=== PATIENT | female | born 1955 | race Caucasian/White ===

== ENCOUNTER 2017-10-15 07:30 | Inpatient (IN) ==
--- NOTE | 2017-10-14 14:30 | History and Physical ---
CHIEF COMPLAINT Right knee pain. HPI This is a 62-year-old lady who has advanced arthritis involving her right knee. She is having moderate to severe pain with any type of weightbearing activity. Pain is described as burning, sharp and throbbing. It is constant. It does radiate down the leg into her foot. She has tried heat, ice, ibuprofen , home exercises, crutches and prescription medication. Her symptoms are gradually worsening. The pain is debilitating at times. She has weakness, numbness, swelling, nighttime pain that keeps her from sleeping, weakness with walking and sensation of the knee wanting to give way. 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 She uses crutches to ambulate secondary to pain and instability. She is being admitted for an elective right total knee replacement. ALLERGIES Allergy to codeine although tolerates hydrocodone quite well. Allergy to gabapentin - causes confusion. Lyrica. Adhesive tape causes blistering and alcohol has caused blistering. MEDICATIONS Her list of medications is updated in the EMR. PAST MEDICAL HISTORY The remainder of her medical history is unchanged from Dr. Gallegos's dictation dated 08/17/2017. A copy of that is in the chart. REVIEW OF SYSTEMS There was no fever, chills, skin infections, rashes or seizures. She does report some numbness in the right lower extremity from previous nerve injury. PHYSICAL EXAMINATION 62-year-old lady who is alert and cooperative, in no acute distress. She is ambulatory with the use of a crutch. Her gait is antalgic favoring the right. Mood and affect are normal. The knee is stable to ligamentous exam. No effusion is present. No warmth or redness is noted. There is 1+ effusion. She has a valgus deformity that is partially correctable. She also has a slight flexion contracture to the knee. She is tender along the medial and lateral joint lines. Range of motion of the hip is well maintained. Neurovascularly intact to the lower extremity. ASSESSMENT Primary osteo/osteoarthritis of the right knee. PLAN Due to the severity of her symptoms, the x-ray findings, and failure of nonsurgical treatment, Dr. Gallegos has recommended right total knee arthroplasty. The risks, benefits, alternative treatment and possible complications of surgery have all been reviewed. Questions have been answered to her satisfaction. She has elected to proceed with a right total knee replacement on 10/15/2017. LACEY
[~2017-10-15 07:30] MED LIST: ACETAMINOPHEN 500 MG TABLET PO ONE; DEXAMETHASONE 4 MG/ML INJECTION IVP ONE; FAMOTIDINE PB 20 MG/50 ML BAG IV ONE; LIDOCAINE 1% (10mg/ml) 2mL INJ PF SDV ID ONE; MELOXICAM 15 MG TABLET PO ONE; METOCLOPRAMIDE 10mg/2ml INJECTION IVP ONE; ONDANSETRON 4 MG/2 ML INJECTION IVP ONE
[2017-10-15] MEDS ORDERED: EPINEPHrine PF 0.25 MG, BUPIVACAINE 0.25% PF 30 ML, MORPHINE SULFATE 15 MG, KETOROLAC I... OPSITE ONE (08:00)
[2017-10-15] MEDS ORDERED: MIDAZOLAM 2mg/2ml INJECTION ONE (08:26)
[2017-10-15] MEDS ORDERED: FentaNYL 100 MCG/2 ML INJECTION ONE (08:26)
[2017-10-15] MEDS ORDERED: PROPOFOL 500 MG/50 ML VIAL ONE ×2 (08:27→10:36)
[2017-10-15 08:29] VITALS: BMI 41.2
[2017-10-15] MEDS: LR 1,000 ML IV SCH ×2 (08:50→10:30)
[2017-10-15] MEDS: NOZIN NASAL SWAB NAS SCH ×5 (08:56→21:43)
[2017-10-15] MEDS ORDERED: VANCOMYCIN 1,000 MG INJECTION ONE (09:11)
--- NOTE | 2017-10-15 09:29 | Anesthesia Preoperative Report ---
Anesthesia Preoperative Record - Date and Time Date: 10/15/17 Preoperative Diagnosis: RT TKA M17.11 NPO Since Date: 10/14/17 NPO Since Time: 18:00 Allergies/Adverse Reactions: Allergies Allergy/AdvReac Type Severity Reaction Status Date / Time codeine Allergy Unknown DIFFICULTY Verified 10/15/17 08:40 BREATHING gabapentin Allergy Unknown CONFUSION Verified 10/15/17 08:40 pregabalin AdvReac Intermediate Swelling Verified 10/15/17 08:40 adhesive tape AdvReac Unknown Blistering Verified 10/15/17 08:40 alcohol AdvReac Unknown Blisters Verified 10/15/17 08:40 - Vital Signs Vital Signs: Temperature 98.2 F 10/15/17 08:28 Pulse Rate 75 10/15/17 08:56 Respiratory Rate 14 10/15/17 08:28 Blood Pressure 181/99 H 10/15/17 08:28 Pulse Oximetry 94 10/15/17 08:28 Height and Weight: Height 1.65 m Weight 112.4 kg Body Mass Index 41.2 - Medications Inpatient Medications: Current Medications Cefazolin Sodium (Kefzol) 2 g IVP PREOP ONE Stop: 10/15/17 09:31 Lactated Ringer's (Lactated Ringers) 1,000 mls @ 50 mls/hr IV .Q20H [facility] Last Admin: 10/15/17 08:50 Dose: 50 mls/hr Isopropyl Alcohol (Nozin Nasal Swab) 1 each [place] Q1M LIZ Stop: 10/15/17 12:18 Last Admin: 10/15/17 09:01 Dose: 1 each Sodium Chloride (Iv Flush) 10 - 80 ml IV PRN PRN PRN Reason: Flushing Tranexamic Acid (Cyklokapron) 1,000 mg TOP INTRAOP ONE Stop: 10/15/17 12:12 Home Medications: Home Medications Medication Instructions Recorded Confirmed Type Nitroglycerin 0.4 mg PO Q5MIN3 PRN #0 03/22/13 10/09/17 History Omeprazole 20 mg PO PRN PRN #0 tab 03/20/15 10/15/17 History Lidocaine 5% Ointment [Xylocaine 1 applicatio TOP BID PRN #0 06/03/16 10/09/17 History 5%] Albuterol Sulfate [Proventil Hfa 2 puff INH Q4H PRN 07/20/17 10/15/17 History 90mcg] Fluticasone Nasal [place] [Flonase] 1 spray EA NOSTRIL DAILY PRN 07/20/17 History Hydrocodone/APAP 10325 [[place] 1 tab PO Q4H PRN 07/20/17 10/15/17 History 10/325] Aspirin *EC* [Ecotrin] 325 mg PO DAILY PRN 10/09/17 10/15/17 History Cyclobenzaprine [Flexeril] 1 tab PO TID 10/09/17 10/15/17 History Metoprolol Succinate (XL) [Toprol 50 mg PO DAILY 10/09/17 10/15/17 History Xl] Morphine Sulfate *SR* [Ms Contin] 15 mg PO BID 10/09/17 10/15/17 History Diclofenac [Voltaren] 1 applicatio TOP BID PRN 10/13/17 10/15/17 History Is Patient on Beta Zach?: Yes Beta Zach Last Dose Date/Time: 10/15/17 @ 0700 - Medical History Respiratory: Reports: Asthma, Pneumonia (RECURRENT), Sleep Apnea (pressumptive) Cardiovascular: Reports: Hypertension, High Cholesterol, Other (chest pain 2016; irregular heart beat, stress test negative for ischemia) Gastrointestional: Reports: Gastroesophageal Reflux Disease (sometimes with certain meds), Morbid Obesity Neuro/Musculoskeletal: Reports: HX.MS.OSAR (fibromyalgia; gout), Back Problems ( Chronic pain-[facility]), Cerebrovascular Accident (TIA's x 2. Last episode 10 years ago.), Muscle Weakness (right peroneal injury from previous right leg surgery, with foot drop), Other (TUMORS TO TENDONS; Raynaud' s syndrome, neuropathy to all extremeties. ) Renal/Endocrine: Reports: Other (history of kidney stones) Other History: Reports: Anesthesia Reactions (awakens quicky, sometimes too soon ), Other (history of DVT) - Surgical History Cardiac Surgeries/Treatments: Reports: Cardiac Catheterization GI Surgery/Treatments: Reports: Colonoscopy, EGD Musculoskeletal Surgery/Tx: Reports: Carpal Tunnel Release (Rt; left dequervains ), Joint Surgery, Knee Arthroscopy (Rt-numerous), Orthopedic Surgery (Rt knee arthrotomy x3; Lt ankle tumor exc; Rt elbow ext tendon reattached), Shoulder Arthroscopy (RCR), Total Knee Replacement (Lt TKA x2), Other (clavical surgery, RIGHT) Reproductive Surgery/Treatment: Reports: Dilation and Curettage (x2) Anesthesia Reactions: None Hx Family Anesthesia Reaction: No History of Motion Sickness: No - Social History Smoking Status: Never smoker Hx Chewing Tobacco Use: No Second Hand Exposure: No Substance Use Type: does not use Alcohol Intake Frequency: does not drink - Pertinent Findings Laboratory: CBC and BMP 10/15/17 08:50 BMP 10/15/17 08:50 Sodium 143 Potassium 3.8 Chloride 105 Carbon Dioxide 24 BUN 10.0 Creatinine 0.5 L Glucose 121 H Calcium 9.5 EKG: Sinus Rhythm - Physical Exam Respiratory Exam: Present: lungs clear, bilateral breath sounds equal Cardiovascular Exam: Present: regular rate and rhythm - Airway Assessment Mallampati Score: I TMD: 3 Fingerbreadths Neck Extension: poor (states has some limitation to ROM) Teeth: upper dentures, lower dentures Overall Assessment: may be difficult mask vent - ASA ASA Score: 3 - Plan Anesthesia: General Inhalation Gases, Neuroaxial Regional/Trunk Block: Spinal Peripheral Nerve Block: Saphenous-Right - Discussion Discussion: Discussed risks/options/alternatives of anesthesia and questions answered. Patient consents. Nursing pain assessment noted. Present for Discussion: family member Attestation Statement: Prior to the delivery of any anesthetic medication, I examined the patient, developed the plan, obtained the patient's consent and discussed the risk and benefits of the procedure with the patient/guardian. - Additional Information Seen by Anesthesia: Yes
[2017-10-15] MEDS ORDERED: CEFAZOLIN 1 G INJECTION IVP ONE (09:30)
[2017-10-15] MEDS ORDERED: VANCOMYCIN 1,000 MG INJECTION IAR ONE (09:45)
[2017-10-15] MEDS ORDERED: KETAMINE 500 MG/10 ML INJECTION ONE (09:58)
[2017-10-15] MEDS ORDERED: SALINE FLUSH 10ml SYRINGE ONE (10:02)
[2017-10-15] MEDS ORDERED: ROPIVACAINE 0.5% (5mg/ml) 30ml INJ ONE (10:37)
--- NOTE | 2017-10-15 11:25 | Operative Note ---
- Procedure Preoperative Diagnosis: Right knee primary degenerative joint disease Postoperative Diagnosis: Same as preoperative diagnosis. Surgeon: Thor Gallegos MD [place] Worker: Dontrell Blake Complications: None. Anesthesia: Spinal. Estimated Blood Loss: See Anesthesia Record. Fluids: Please see Anesthesia Record. Description of Procedure: Mrs. Cartwright and her right knee were identified and marked in the preoperative holding area. She was brought back to the operating suite. Spinal anesthetic was administered and she was placed supine on the operating table. The right lower extremity was prepped and draped in my normal sterile fashion. Timeout was performed. The [employer] robotic arm was used during the surgery. She had a varus deformity with a 20 flexion contracture. A standard anterior midline incision followed by medial parapatellar arthrotomy was performed. I utilized about two thirds of her previous curvilinear incision with the most distal aspect curved to far lateral to used to complete previous incision. Anterior fat pad and meniscus were removed. She had significant osteophyte formation especially in the notch and both medially and laterally on the femur and tibia. The patella was everted and a patellar osteotomy was performed leaving 13 mm of bone. Tibial and femoral arrays and checkpoints were placed both within the original incision. The bone was then registered with the [employer] robot. Osteophytes were removed and gaps were captured both 90 and 0 with correction. The [employer] robotic software was used to obtain 18 mm gaps throughout. The [employer] robotic arm was then used to assist with the bone cuts. Posterior osteophytes and remaining meniscus were removed. Trial components were placed. We used a 5 femur and a 4 tibia with a 9 mm spacer and a 32 patella. She tracked well and was well balanced throughout range of motion. The tibia was stamped at the proper rotation. Trial components fit well and bone quality was adequate so we proceeded with press-fit components. Components were press-fit into place. A final spacer was also placed. The knee was ranged one more time to ensure good stability, balance and patellar tracking. 1 g of TXA was allowed to sit in the wound for 5 minutes and then suctioned out. 1 g of vancomycin powder was then placed into the knee joint. The capsulotomy was then closed with #1 Vicryl. I then left my shipping assistant to close the subcutaneous tissue with 2-0 Vicryl. Running 4-0 Monocryl will be used in the subcuticular layer. Dermabond will be used on the skin followed by sterile dressing. After drapes are removed patient will be taken to recovery room under the care of anesthesia.
--- NOTE | 2017-10-15 12:08 | Anesthesia Procedure Note ---
Peripheral Nerve Blockade - Procedure Physician: Geoffrey Gallegos MD Date: 10/15/17 Discussion: Discussed risks/options/alternatives of anesthesia and questions answered. Patient consents. Nursing pain assessment noted. Block Start: 11:54 Block Stop: 12:02 Blocked Employed: Adductor Canal, Single Injection Indication: Post-Operative Pain Approach: Right Side Confirmed Position: Supine Patient: Consent, Risks/Benefits Discussed, Informed, Post Block Act. Discussed IV Sedation: No (post op) Sedation: Awake Initial Vital Signs: Temperature 98.2 F 10/15/17 08:28 Temperature Source Oral 10/15/17 08:28 Pulse Rate 88 10/15/17 08:28 Respiratory Rate 14 10/15/17 08:28 Blood Pressure 181/99 H 10/15/17 08:28 Blood Pressure Mean 126 10/15/17 08:28 Pulse Oximetry 94 10/15/17 08:28 Oxygen Delivery Method 10/15/17 08:28 Post Vital Signs: Temperature 98.2 F 10/15/17 08:28 Pulse Rate 75 10/15/17 08:56 Respiratory Rate 14 10/15/17 08:28 Blood Pressure 181/99 H 10/15/17 08:28 Pulse Oximetry 94 10/15/17 08:28 Ultrasound Used?: Yes - Nerve Simulator Needle Depth: 4 Muscle Response: No Paresthesia/Pain: None - Injectate Ropivacaine (%): 0.5 Ropivacaine (mL): 15 Was Epi 1:200,000 Used?: No Injection: Injection made incrementally with constant monitoring and aspiration every 5 ml
[2017-10-15] MEDS ORDERED: SALINE FLUSH 10ml SYRINGE IV PRN (12:11)
[2017-10-15] MEDS ORDERED: TRANEXAMIC ACID 1,000mg/10ml INJECTION TOP ONE (12:11)
[2017-10-15] MEDS ORDERED: OMEPRAZOLE 20 MG CAPSULE PO PRN (12:21)
[2017-10-15] MEDS ORDERED: FLUTICASONE NASAL SPRAY 50mcg EA NOSTRIL PRN (12:21)
[2017-10-15] MEDS ORDERED: NAPROXEN 220 MG TABLET PO PRN (12:21)
[2017-10-15] MEDS ORDERED: DiphenhydrAMINE 25 MG CAPSULE PO PRN (12:21)
[2017-10-15] MEDS ORDERED: ALBUTEROL 2.5mg/3ml (0.083%) NEB AEROSOL PRN (12:21)
[2017-10-15] MEDS ORDERED: WARFARIN - PHARMACY CONSULT MC ONE (12:21)
[2017-10-15] MEDS ORDERED: LORazepam 1 MG TABLET PO PRN (12:21)
[2017-10-15] MEDS ORDERED: DiphenhydrAMINE 50 MG/ML INJECTION IVP PRN (12:21)
[2017-10-15] MEDS ORDERED: NOZIN NASAL SWAB NAS ONE (12:21)
[2017-10-15] MEDS ORDERED: ONDANSETRON 4 MG/2 ML INJECTION IVP PRN (12:21)
[2017-10-15] MEDS ORDERED: NITROGLYCERIN 0.4 MG SUBLINGUAL TABLET SL PRN (12:21)
--- NOTE | 2017-10-15 12:29 | XRay Report ---
Indication: postoperative image PROCEDURE: XR knee RT 2V: Encounter: Initial Comparison: July 20, 2017 Findings: Postoperative changes of right total knee replacement are seen. There is expected postoperative subcutaneous gas. No evidence of hardware failure or acute fracture. No retained radiopaque surgical instruments or sponges. Overlying material causing artifact. Impression: New right total knee prosthesis without evidence of immediate complication. .
[2017-10-15] MEDS: NS 1,000 ML IV SCH (12:41)
[2017-10-15] MEDS ORDERED: WARFARIN 6 MG TABLET PO ONE (13:29)
--- NOTE | 2017-10-15 13:34 | Pharmacy Consult ---
Pharmacy Consult-Warfarin - Consult Information We will order 6mg of warfarin p.o. today. Goal INR of 1.5 to 2.5 (post TKR with history of DVT). Thanks
[2017-10-15] MEDS: ACETAMINOPHEN 325 MG TABLET PO SCH ×3 (14:13→21:46)
[2017-10-15] MEDS: CYCLOBENZAPRINE 10 MG TABLET PO SCH ×2 (15:44→21:44)
[2017-10-15] MEDS: Oxycodone *IR* 5 MG TABLET PO PRN ×2 (15:44→18:42)
[2017-10-15] MEDS: DEXAMETHASONE 20 MG/5 ML INJECTION IVP SCH (18:18)
[2017-10-15] MEDS: CEFAZOLIN 2 G in NS 100 ML IV SCH (18:24)
[2017-10-15] MEDS ORDERED: SENNOSIDES 8.6 MG TABLET PO SCH (21:00)
[2017-10-15] MEDS: DOCUSATE SODIUM 100 MG CAPSULE PO SCH (21:44)
[2017-10-15] MEDS: ENOXAPARIN 40 MG/0.4 ML INJECTION SQ SCH (21:45)
[2017-10-16] MEDS: Oxycodone *IR* 5 MG TABLET PO PRN ×6 (00:02→15:05)
[2017-10-16] MEDS: CEFAZOLIN 2 G in NS 100 ML IV SCH (01:35)
[2017-10-16] MEDS: NS 1,000 ML IV SCH (01:35)
[2017-10-16] MEDS: DEXAMETHASONE 20 MG/5 ML INJECTION IVP SCH (01:36)
[2017-10-16] MEDS: NOZIN NASAL SWAB NAS SCH ×2 (05:56→13:44)
--- NOTE | 2017-10-16 07:47 | Pharmacy Consult ---
Pharmacy Consult-Warfarin - Laboratory Information 10/16/17 04:04 INR 1.17 - Consult Information Warfarin 6mg ordered for today at noon. Will continue to monitor. Thank you.
--- NOTE | 2017-10-16 08:00 | Orthopedic Progress Note ---
Date: Date: 10/16/17 Time: 756 Subjective/Severity of Illness: Ashley states she is feeling good this AM. She has multiple questions regarding discharge, but has no new medical complaints. She denies shortness of breath, calf pain or chest pain. Orthopedic Objective PO Vital signs: Temperature 98.7 F 10/16/17 04:00 Pulse Rate 68 10/16/17 04:00 Respiratory Rate 16 10/16/17 04:00 Blood Pressure 137/74 10/16/17 04:00 Pulse Oximetry 92 10/16/17 04:00 Height and Weight: Height 5 ft 5 in Weight 247 lb 12.793 oz Body Mass Index 41.2 - Constitutional General Appearance: Present: alert, orientated x3, no acute distress - Respiratory Exam Present: non-labored - Cardiovascular Exam Present: pedal pulses intact Capillary Refill: < 2-3 Seconds - Abdominal Exam Absent: distended - Extremities Exam Extremities: Present: pulses intact. Absent: calf tenderness - Surgical Site Incision: Mepilex dressing intact, no drainage - Integumentary Exam Present: pink, warm, dry - Neurological Exam Present: intact to light touch, no deficits - Psychiatric Exam Present: normal affect - Labs Result Diagrams: 10/16/17 04:04 10/16/17 04:04 Abnormal lab results 10/15/17 10/16/17 10/16/17 Range/Units 08:50 04:04 04:04 Hgb 11.8 L (12-16) GM/DL Hct 35.3 L (36-46) % Chloride 109 H (98-107) MEQ/L Creatinine 0.5 L 0.5 L (0.7-1.2) MG/DL Glucose 121 H 178 H (65-110) MG/DL Specimen Hemolysis 40 H (0-25) H & H 10/16/17 Range/Units 04:04 Hgb 11.8 L (12-16) GM/DL Hct 35.3 L (36-46) % Coagulation 10/16/17 Range/Units 04:04 INR 1.17 (0.99-1.21) Orthopedic Assessment and Plan (1) Obesity, morbid, BMI 40.0-49.9 Status: Acute Assessment and Plan: continue home medications (2) Primary osteoarthritis of right knee Status: Acute Assessment and Plan: P/O day #1 of Right TKA, Dr. 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 She is on pain management and has been advised it will be up to her to talk to her pain Dr. to communicate her narcotic prescriptions on discharge. Possible discharge later today. (3) Gout Status: Chronic Assessment and Plan: continue home meds (4) Raynauds disease Status: Chronic Assessment and Plan: continue home medications (5) Asthma Status: Chronic Assessment and Plan: continue home medications (6) Neuropathy Status: Chronic Assessment and Plan: continue home medications (7) Muscle disorder Status: Chronic (8) DVT (deep venous thrombosis) Status: Chronic Assessment and Plan: She will be on a lovenox and coumadin bridge. This is a history of DVT, not an acute issue. - Anticoagulation Therapy Anticoagulation: Coumadin therapy with Lovenox bridge x30 days Hospital Course Summary Disclaimer: The visit summary below is not to be considered part of the above Progress Note.
[2017-10-16] MEDS: CYCLOBENZAPRINE 10 MG TABLET PO SCH (08:43)
[2017-10-16] MEDS: DOCUSATE SODIUM 100 MG CAPSULE PO SCH ×2 (08:43→11:26)
[2017-10-16] MEDS: ACETAMINOPHEN 325 MG TABLET PO SCH ×2 (08:45→13:45)
[2017-10-16] MEDS ORDERED: POLYETHYL GLYCOL 3350 17gm PACKET PO SCH (09:00)
[2017-10-16] MEDS ORDERED: SENNOSIDES 8.6 MG TABLET PO PRN (11:43)
[2017-10-16] MEDS ORDERED: WARFARIN 6 MG TABLET PO SCH (12:00)
[2017-10-16 12:10] VITALS: BP 134/76; PULSE 79; RESP 18; TEMP 98.6; O2SAT 94
--- NOTE | 2017-10-16 14:17 | Discharge Summary ---
Orthopedic Discharge Info Date of admission: 10/15/17 07:48 Primary care physician: Suman Day MD Attending Physician: Geoffrey Gallegos MD Consults: 10/15/17 08:06 Consult to Anesthesiology [CONS] Routine Reason For Exam: Preoperative Assessment 10/15/17 12:21 Case Management Consult [CONS] Routine Reason For Exam: Discharge Planning DME-Walker [CONS] Routine Height: 5 ft 5 in Weight: 247 lb 12.793 oz Total Joint Outpatient Therapy [CONS] Routine Comment: Remove dressing in 2 weeks - Discharge Diagnosis (1) Obesity, morbid, BMI 40.0-49.9 Status: Acute (2) Primary osteoarthritis of right knee Status: Acute (3) Gout Status: Chronic (4) Raynauds disease Status: Chronic (5) Asthma Status: Chronic (6) Neuropathy Status: Chronic (7) Muscle disorder Status: Chronic (8) DVT (deep venous thrombosis) Status: Chronic - Procedures Procedures: Procedures Other incision of soft tissue (03/11/11) Revision of knee replacement, tibial component (03/11/11) Total knee replacement (06/27/08) - Laboratory Result Diagrams: 10/16/17 04:04 10/16/17 04:04 Laboratory: Abnormal lab results 10/16/17 10/16/17 Range/Units 04:04 04:04 Hgb 11.8 L (12-16) GM/DL Hct 35.3 L (36-46) % Chloride 109 H (98-107) MEQ/L Creatinine 0.5 L (0.7-1.2) MG/DL Glucose 178 H (65-110) MG/DL H & H 10/16/17 Range/Units 04:04 Hgb 11.8 L (12-16) GM/DL Hct 35.3 L (36-46) % Coagulation 10/16/17 Range/Units 04:04 INR 1.17 (0.99-1.21) Orthopedic Discharge HPI - HPI Comments This patient was admitted for elective surgical tx of end stage degenerative joint disease that failed to respond to conservative treatment. Further details of this is found in the admission H&P. Orthopedic Hospital Course Hospital course: 10/16/17 14:16 After appropriate preoperative clearance and signing of operative consent, the patient was given IV antibiotics, according to orthopedic protocol. The patient was taken to the operating room and underwent elective joint arthroplasty. Following surgery, antibiotics were discontinued less than 24 hours according to joint protocol. Appropriate anticoagulants were initiated and SCDs added for DVT prevention. The dressing was clean, dry, and intact. Pain control was obtained via multimodal approach. Bowel motivation addressed with scheduled and PRN medications. Early mobilization was initiated through PT services. Discharge arrangements made by a collaborative effort between the patient and Case Management. Follow-up is scheduled in 2-3 weeks. Discharge instructions given by orthopedic providers and nursing staff at discharge. Discharge condition was good. Care extended to > 2 midnight stays?: No Discharge Plan - Med Rec/Dispo Referrals/Follow Up: Geoffrey Gallegos MD [Physician] - 11/02/17 2:15 pm Estebanuvgeraldo Instructions: [facility] Ortho Postop Instructions Additional Instructions: [facility] ON 10/19/2017 AT 8:00AM FOR PHYSICAL THERAPY EVAL. PLEASE COMPLETE THE PAPERWORK IN THE [facility] FOLDER PRIOR TO THE APPOINTMENT. PHONE [phone] [facility] TWICE A WEEK (MONDAYS AND THURSDAYS) FOR INR LAB DRAW FOR FOUR WEEKS. PHONE [phone] COME TO [facility] EVERYDAY FOR 5 DAYS TO GET LOVENOX INJECTION BEGINNING THURSDAY, OCTOBER 17. CHECK IN AT REGISTRATION THE FIRST VISIT. THEN GO TO ROOM 114 FOR THE INJECTION. COME ABOUT THE SAME TIME EACH DAY FOR INJECTION. Prescriptions: New Acetaminophen [Tylenol] 650 mg PO QID tab Enoxaparin Sodium [Lovenox] 40 mg SQ Q24H #5 syringe Naproxen [Aleve] 440 mg PO BID PRN tab PRN Reason: Pain Oxycodone *IR* [Roxicodone *Ir*] 5 - 15 mg PO Q3H PRN #60 tab PRN Reason: Breakthrough Pain PEG 3350 17gm PACKET [Miralax] 17 gm PO DAILY packet Warfarin [Coumadin] 2.5 mg PO NOON #60 tab Continue Nitroglycerin 0.4 mg PO Q5MIN3 PRN #0 PRN Reason: Chest Pain Albuterol Sulfate [Proventil Hfa 90mcg] 2 puff INH Q4H PRN PRN Reason: Shortness Of Air/Wheezing Metoprolol Succinate (XL) [Toprol Xl] 50 mg PO DAILY Cyclobenzaprine [Flexeril] 1 tab PO TID Morphine Sulfate *SR* [Ms Contin] 15 mg PO BID Omeprazole 20 mg PO PRN PRN #0 tab PRN Reason: Acid Reflux Lidocaine 5% Ointment [Xylocaine 5%] 1 applicatio TOP BID PRN #0 PRN Reason: Pain Fluticasone Nasal [place] [Flonase] 1 spray EA NOSTRIL DAILY PRN PRN Reason: Allergy Symptoms Discontinued Hydrocodone/APAP 10/325 [[place] 10/325] 1 tab PO Q4H PRN PRN Reason: Pain Aspirin *EC* [Ecotrin] 325 mg PO DAILY PRN PRN Reason: Pain Diclofenac [Voltaren] 1 applicatio TOP BID PRN PRN Reason: Pain - Disposition 01 Discharged Home, Self-Care - Dismissal Complete Discharge Instructions are:: Complete
[2017-10-16] MEDS: ENOXAPARIN 40 MG/0.4 ML INJECTION SQ SCH (15:50)
[2017-10-17] MEDS ORDERED: BISACODYL 10 MG SUPPOSITORY RECTALLY SCH (20:00)
== END 2017-10-16 15:58 | disposition home or self-care (01) | DRG 470 ==
LOC: NMC.PERIOP 07:48 → EDSTATUS 09:50 → SRG 12:29
PROVIDERS: ADMIT Orthopaedic Surgery; ATTEND Orthopaedic Surgery